=== PATIENT | male | born 1950 | race Caucasian/White ===

== ENCOUNTER 2020-10-14 06:25 | Day surgery (SDC) | payer OTHER ==
[~2020-10-14] VITALS: Ht 180.3 cm; Wt 130.5 kg
[~2020-10-14 06:25] MED LIST: ADULT ASPIRIN R81 MG PO; AMITRIPTYLINE H25 MG PO; ASCORBIC ACID500 M3 PO; B-12500 MCG PO; BUPROPION HCL200 MG PO; CITALOPRAM HBR20 MG PO; FISH OIL 1,0001 EAC3 PO; GABAPENTIN300 MG PO; GLUCOPHAGE1000 MG PO; JARDIANCE25 MG PO; LEVOTHYROXINE137 MC1 PO; LISINOPRIL20 MG PO; MELOXICAM7.5 MG PO; MINIPRESS1 MG PO; NESINA25 MG PO; NOVOLOG100 UNIT/2 SUB-Q; OMEPRAZOLE20 MG PO; REFRESH OPTIVE10 M1 OP; ROSUVASTATIN CA40 MG PO; SEMGLEE100 UNIT/1 SUB-Q; SILDENAFIL CIT100 MG PO; VENTOLIN HFA18 GM INH; VITAMIN D325 MC4 PO
--- NOTE | 2020-10-14 08:11 | NUR ---
10/14/20 0811 Penny Jha 0758- PT ARRIVES TO PACU AROUSABLE TO VOICE. PT FALLS TO SLEEP INSTANTLY WHEN NOT BEING TALKED TO. RESP EVEN AND UNLABORED. OXYGEN SAT HIGH 90'S ON 2L VIA NC. PT PASSING A LARGE AMOUNT OF FLATUS. 0803- PT WOKEN UP AND ENCOURAGED TO TAKE DEEP BREATHS. PT IS ABLE TO DO THIS. PT REPORTS NO PAIN OR NAUSEA. 0811- PT SAT UP SLIGHTLY IN BED AND ENCOURAGED TO COUGH. PT IS ABLE TO FOLLOW THIS COMMAND. FALLS BACK TO SLEEP WHEN NOT BEING STIMULATED.
--- NOTE | 2020-10-14 08:45 | OR ---
[facility] [address], [place] [address] Signed DATE OF OPERATION: 10/14/2020 SURGEON: Mark Anderson MD PREOPERATIVE DIAGNOSES: 1. Gastritis. 2. Gastroesophageal reflux disease. 3. Personal history of colonic polyps in 2012. POSTOPERATIVE DIAGNOSES: 1. Mild gastritis. 2. Hiatal hernia (43-40 cm). 3. Minimal sigmoid diverticulosis. 4. Poor bowel prep. PROCEDURES: 1. EGD with CLOtest and biopsies of the antrum and GE junction. 2. Colonoscopy with hot biopsy. ESTIMATED BLOOD LOSS: None. INDICATIONS: Leticia is a 70-year-old obese, diabetic gentleman, asked to see me for upper and lower endoscopy. He had both upper and lower endoscopy in 2011 with [facility] in [place], [place]. He is known to have acid reflux along with some mild gastritis. His H pylori was negative. He continues to have breakthrough symptoms on his Prilosec. In addition, he had multiple hyperplastic polyps in the colon or rectum. He had a single adenomatous polyp in the hepatic flexure. Consequently, he was asked to follow up in 5 years for a repeat colonoscopy. In the meantime, he has no lower GI complaints. There is no family history of colon cancer or polyps. In the office, I gave Leticia and his a pamphlet on upper and lower endoscopy. We had reviewed the nature of the two tests along with the risks including, but not limited to gas bloating, crampy abdominal pain, bleeding, perforation requiring surgery, and missed diagnosis. We had also reviewed the written instructions for bowel prep. Interestingly, he ate oatmeal for breakfast. Unfortunately, he had a poor bowel prep today. In addition, we reviewed the need for IV conscious sedation. He had expressed understanding and wished to proceed. PROCEDURE NOTE: Electronically Signed By: MARK ANDERSON MD 10/14/20 0845 PATIENT NAME: LETICIA LEE OPERATIVE REPORT DATE OF : 50 REPORT #: [id number] PHYSICIAN: MARK ANDERSON MD PCP: ERICA BRUNO MD REPORT IS CONFIDENTIAL AND NOT TO BE RELEASED WITHOUT AUTHORIZATION [facility] [address], [place] [address] Signed Leticia was taken into our endoscopy suite and placed in the supine semi-recumbent position. The posterior oropharynx was anesthetized with Hurricaine spray. He was given a total of 7 mg of Versed and 100 mcg of fentanyl to cover both upper and lower endoscopy. A bite block was utilized for the case. The adult gastroscope had been introduced and advanced out into the third portion of the duodenum under direct visualization of camera without difficulty. The duodenum and pyloric channel were unremarkable. His stomach showed very mild erythematous changes. We took a biopsy of the antrum for CLOtest as well as pathologic review. Upon retroflexion of scope, we can see he has just a small hiatal hernia. It measured out from 43-40 cm. Very minimal disruption to the Z-line. We went and took a biopsy along the edge of the Z-line for pathologic review. No Cohen's mucosa. No distal esophagitis. The middle and upper esophagus were unremarkable. After this, the gas had been suctioned out and gastroscope removed. eLticia tolerated his upper endoscopy quite well. Leticia was then rotated into the left lateral decubitus position. He was maintained on IV sedation with the Versed and fentanyl. A digital rectal exam was performed. I could just reach the bottom of the prostate gland. It is quite indurated, moderately swollen with the left lobe more prominent than the right. The adult colonoscope had been introduced and advanced around into the cecum under direct visualization of camera. Unfortunately, he had a poor bowel prep. The right colon was actually pretty decent, but the rest of the colon was mostly covered in liquid particulate stool matter. The scope was then slowly withdrawn. We took pictures throughout for photodocumentation. We saw few diverticula in the sigmoid colon. Once in the rectum, the scope was retroflexed, we did not see any pathology above the anal canal. After this, the gas was suctioned out and colonoscope removed. Leticia tolerated the procedure quite well. RECOMMENDATIONS: I will see Leticia back in my office in 7 to 14 days to review his results. He needed to repeat the colonoscopy with a double bowel prep. Mark Anderson MD ALB/MODL /[id number] cc: [facility] Electronically Signed By: MARK ANDERSON MD 10/14/20 0845 PATIENT NAME: LETICIA LEE OPERATIVE REPORT DATE OF : 50 REPORT #: [id number] PHYSICIAN: MARK ANDERSON MD PCP: ERICA RBUNO MD REPORT IS CONFIDENTIAL AND NOT TO BE RELEASED WITHOUT AUTHORIZATION [facility] [address] [place], [place] [address] Signed Mark Anderson MD Copies: MARK ANDERSON MD ~ Electronically Signed By: MARK ANDERSON MD 10/14/20 0845 PATIENT NAME: LETICIA LEE Ashley OPERATIVE REPORT DATE OF : 50 REPORT #: [id number] PHYSICIAN: MARK ANDERSON MD PCP: ERICA BRUNO MD REPORT IS CONFIDENTIAL AND NOT TO BE RELEASED WITHOUT AUTHORIZATION
--- NOTE | 2020-10-14 09:36 | NUR ---
PT ALERT, ORIENTED AND SUPPORTED BY HIS AGUSTIN. BOTH SEEM CALM, AT EASE AND DEALT APPROPRIATELY WITH PREP.ALL QUESTIONS ASKED ASWERED. PT REQUESTED PRAYER, WILL FOLLOW
--- NOTE | 2020-10-18 16:18 | PATH ---
[facility] [address], [place] [address] Signed SPECIMEN(S): A ANTRUM/PYLORUS BIOPSY SPECIMEN(S): B GE JUNCTION SPECIMEN SOURCE: A. ANTRUM/PYLORUS BIOPSY B. GE JUNCTION CLINICAL HISTORY: Esophagogastroduodenoscopy, colonoscopy. History of gastritis, acid reflux, GERD, history of multiple polyps in colon/rectum. Post: Mild gastritis, hiatal hernia, diverticulosis. MICROSCOPIC DESCRIPTION: Histologic sections of all submitted blocks are examined by light microscopy. These findings, together with the gross examination, support the pathologic diagnosis. FINAL PATHOLOGIC DIAGNOSIS: A. Stomach, antrum/pylorus, biopsy: - Antral mucosa with reactive gastropathy and chronic, inactive gastritis. - Negative for Helicobacter organisms on HE stain. - Negative for dysplasia or malignancy. B. Gastroesophageal junction, biopsy: - Squamocolumnar junctional mucosa with no histologic abnormality. - Negative for intestinal metaplasia, dysplasia, or malignancy. NAL:cml:C2NR GROSS DESCRIPTION: Two specimens are received in two containers, labeled "JM." A. The specimen, labeled "JM, 1," and designated on the requisition "antrum/pylorus," is received in formalin and consists of one arellano soft tissue fragment that measures 0.4 cm in greatest dimension. The specimen is entirely submitted in cassette (A1). B. The specimen, labeled "JM, 2," and designated on the requisition "GE junction," is received in formalin and consists of one arellano soft tissue fragment that measures 0.3 cm in greatest dimension. The specimen is entirely submitted in cassette (B1). AT (under the direct supervision of a pathologist) The Gross Description was prepared using a voice recognition system. The report was reviewed for accuracy; however, sound-alike word errors, addition and/or deletions may occur. If there is any question about this report, please contact Client Services. PATIENT NAME: ESTHER LEE PATHOLOGY DATE OF : 50 REPORT #: [id number] PHYSICIAN: JENNIFER PATHOLOGY PCP: ERICA BURNO MD REPORT IS CONFIDENTIAL AND NOT TO BE RELEASED WITHOUT AUTHORIZATION [facility] [address] [place], [place] [address] Signed PERFORMING LABORATORY: The technical component was performed by [address] [address] (Shop Coordinator: Sarita Odom MD; CLIA# [id number]). Professional interpretation was performed by [facility], [address] [place], [place] [address] (CLIA# [id number]). Diagnostician: Geno Alejo MD Pathologist Electronically Signed 10/18/2020 Copies: ~ PATIENT NAME: ESTHER LEE PATHOLOGY DATE OF : 50 REPORT #: [id number] PHYSICIAN: JENNIFER ESPINAL PCP: ERICA BRUNO MD REPORT IS CONFIDENTIAL AND NOT TO BE RELEASED WITHOUT AUTHORIZATION
== END 2020-10-14 08:58 | disposition home or self-care (01) ==
LOC: OPS 06:25 → DS 06:25 → OPS 06:45
PROVIDERS: ATTEND Colon & Rectal Surgery
PROC: 0DBK8ZZ Excision of Ascending Colon, Via Natural or Artificial Opening Endoscopic (ICD-10-PCS; principal; 2020-10-14 06:45)
PROC: 0DB48ZX Excision of Esophagogastric Junction, Via Natural or Artificial Opening Endoscopic, Diagnostic (ICD-10-PCS; 2020-10-14 06:45)
DX: K21.9 Gastro-esophageal reflux disease without esophagitis (principal); E11.9 Type 2 diabetes mellitus without complications; I10 Essential (primary) hypertension; E66.9 Obesity, unspecified; K57.30 Diverticulosis of large intestine without perforation or abscess without bleeding; K44.9 Diaphragmatic hernia without obstruction or gangrene; K29.70 Gastritis, unspecified, without bleeding; I70.90 Unspecified atherosclerosis; Z68.41 Body mass index [BMI] 40.0-44.9, adult; Z86.010 Personal history of colon polyps; Z79.4 Long term (current) use of insulin
CPT/HCPCS: 86677; 88305; 99153; G0500; J2250; J3010; J7121

== ENCOUNTER 2020-11-23 06:16 | Day surgery (SDC) | payer OTHER ==
[~2020-11-23] VITALS: Ht 180.3 cm; Wt 129.7 kg
--- NOTE | 2020-11-23 07:58 | NUR ---
11/23/20 0758 Jenise Denny 0755-PATIENT ARRIVED TO PACU ON 2L NC RR EVEN. PATIENT REACTIVE TO VERBAL STIMULI OPENING EYES DENIES PAIN OR NAUSEA. ENCOURAGED TO PASS GAS. IVF INFUSING. PATIENT VERY DROWSY SLEEPING.
--- NOTE | 2020-11-24 07:03 | OR ---
[facility] [address] [place], [place] [address] Signed DATE OF OPERATION: 11/23/2020 SURGEON: Mark Anderson MD PREOPERATIVE DIAGNOSES: 1. Personal history of colonic polyps in 2011. 2. Diverticulosis. 3. Poor bowel prep (October 2020). POSTOPERATIVE DIAGNOSES: 1. Minimal sigmoid diverticulosis. 2. 4 mm polyp at 18 cm (rectosigmoid junction). PROCEDURE: Colonoscopy with hot biopsy. ESTIMATED BLOOD LOSS: None. INDICATIONS: Leticia is an obese diabetic gentleman, who returns today for a followup colonoscopy. We know that he has a minimal sigmoid diverticulosis from prior colonoscopies. We took him for a colonoscopy in October of this year and the prep was quite poor. He told me he had to use a double bowel prep back in 2011 when he went to the [facility]. I explained to him this is common for diabetic patients. We also know that he had an adenomatous polyp removed in 2011. Consequently, he has come back now with a double bowel prepped to make sure his colon is clear of any polyps. In the office, I had given him a pamphlet on colonoscopy and of course, he understands that test quite well. He knows there is risk including, but not limited to gas bloating, crampy abdominal pain, bleeding, perforation requiring surgery, and missed diagnosis. He also understands the need for the IV conscious sedation. He has done well with Versed and fentanyl in the past. He had expressed and understanding wished to proceed. PROCEDURE NOTE: Fred was taken into our endoscopy suite and placed in the left lateral decubitus position. He was given a total of 6 mg of Versed and 100 mcg of fentanyl to cover the case. At his age, his prostate is moderately enlarged, indurated, but certainly the left side of that prostate is more prominent than the right. He might review this with his primary care provider. After this, the adult colonoscope was introduced and once again advanced all around into the cecum under direct visualization of camera. It took Electronically Signed By: MARK ANDERSON MD 11/24/20 0703 PATIENT NAME: LETICIA LEE OPERATIVE REPORT DATE OF : 50 REPORT #: [id number] PHYSICIAN: MARK ANDERSON MD PCP: ERICA BRUNO MD REPORT IS CONFIDENTIAL AND NOT TO BE RELEASED WITHOUT AUTHORIZATION [facility] [address] [place], [place] [address] Signed a little extra sedation and some abdominal compression in order to advance the scope. On this occasion, his prep was markedly improved. He had a couple of areas of liquid particulate stool matter. Most of that was suctioned out. We could easily see the appendiceal orifice, ileocecal valve. We took pictures throughout for photodocumentation. The scope was then slowly withdrawn. Again, he has minimal sigmoid diverticulosis. They are moderate in size, few in number, and scattered about. We found just a single 4 mm polyp at 18 cm, representing the rectosigmoid junction; it was easily removed with a hot biopsy forceps. The scope was then retroflexed and there was no pathology found above the anal canal. After this, the gas was suctioned out. The colonoscope removed. Leticia tolerated the procedure quite well. RECOMMENDATIONS: Leticia will follow up my office in 7 to 14 days to review his results. He will stay on the 5-year rotation. He will always need a double bowel prep in the future. He might review his prostate exam and his PSA level with his primary care provider. Mark Anderson MD ALB/MODL /[id number] cc: [facility] Mark Anderson MD Copies: MARK ANDERSON MD ~ Electronically Signed By: MARK ANDERSON MD 11/24/20 0703 PATIENT NAME: JESUSLETICIA L OPERATIVE REPORT DATE OF : 50 REPORT #: [id number] PHYSICIAN: MARK ANDERSON MD PCP: ERICA BRUNO MD REPORT IS CONFIDENTIAL AND NOT TO BE RELEASED WITHOUT AUTHORIZATION
== END 2020-11-23 08:30 | disposition home or self-care (01) ==
LOC: DS 06:16 → OPS 06:16 → DS 06:45 → OPS 08:30
PROVIDERS: ATTEND Colon & Rectal Surgery
PROC: 0DBN8ZX Excision of Sigmoid Colon, Via Natural or Artificial Opening Endoscopic, Diagnostic (ICD-10-PCS; principal; 2020-11-23 06:45)
DX: K57.30 Diverticulosis of large intestine without perforation or abscess without bleeding (principal); K63.5 Polyp of colon; K44.9 Diaphragmatic hernia without obstruction or gangrene; E11.40 Type 2 diabetes mellitus with diabetic neuropathy, unspecified; M19.90 Unspecified osteoarthritis, unspecified site; I10 Essential (primary) hypertension; K21.9 Gastro-esophageal reflux disease without esophagitis; E66.9 Obesity, unspecified; Z87.891 Personal history of nicotine dependence; Z79.4 Long term (current) use of insulin; Z79.82 Long term (current) use of aspirin; Z68.39 Body mass index [BMI] 39.0-39.9, adult; Z86.010 Personal history of colon polyps
CPT/HCPCS: 99153; G0500; J7121